=== PATIENT | female | born 1945 | race Caucasian/White ===

== ENCOUNTER → 2019-05-28 15:18 | Outpatient (BNVA) | payer MEDICARE, BC, SELFPAY | PROVIDERS: Family Provider Family Medicine; PCP Family Medicine; Visit Provider Internal Medicine Rheumatology | DX: M10.9 Gout, unspecified (principal); M32.9 Systemic lupus erythematosus, unspecified | CPT/HCPCS: 80053; 84550; 85025 ==

== ENCOUNTER → 2019-05-31 12:49 | Outpatient (BNVA) | payer MEDICARE, BC, SELFPAY | PROVIDERS: Family Provider Family Medicine; PCP Family Medicine; Visit Provider Family Medicine | DX: E11.9 Type 2 diabetes mellitus without complications (principal); Z79.4 Long term (current) use of insulin | CPT/HCPCS: 80061; 83036 ==

== ENCOUNTER → 2019-07-02 15:20 | Outpatient (BNVA) | payer MEDICARE, BC, SELFPAY | PROVIDERS: Family Provider Family Medicine; PCP Family Medicine; Visit Provider Internal Medicine Rheumatology | DX: M10.9 Gout, unspecified (principal); E11.9 Type 2 diabetes mellitus without complications; Z79.4 Long term (current) use of insulin; M32.9 Systemic lupus erythematosus, unspecified | CPT/HCPCS: 80053; 84550; 85025 ==

== ENCOUNTER → 2019-09-26 11:34 | Outpatient (BNVA) | payer MEDICARE, BC, SELFPAY | PROVIDERS: Family Provider Family Medicine; PCP Family Medicine; Visit Provider Internal Medicine | DX: N18.3 Chronic kidney disease, stage 3 (moderate) (principal) | CPT/HCPCS: 80069; 82044; 82310; 83970; 85025 ==

== ENCOUNTER → 2019-10-03 15:06 | Outpatient (BNVA) | payer MEDICARE, BC, SELFPAY | PROVIDERS: Family Provider Family Medicine; PCP Family Medicine; Visit Provider Internal Medicine Rheumatology | DX: L40.50 Arthropathic psoriasis, unspecified (principal); E11.22 Type 2 diabetes mellitus with diabetic chronic kidney disease; I12.9 Hypertensive chronic kidney disease with stage 1 through stage 4 chronic kidney disease, or unspecified chronic kidney disease; N18.3 Chronic kidney disease, stage 3 (moderate); M17.0 Bilateral primary osteoarthritis of knee; Z79.4 Long term (current) use of insulin; Z87.891 Personal history of nicotine dependence; Z79.899 Other long term (current) drug therapy | CPT/HCPCS: 99214 ==

== ENCOUNTER → 2019-10-05 10:01 | Outpatient (BNVA) | payer MEDICARE, BC, SELFPAY | PROVIDERS: Family Provider Family Medicine; PCP Family Medicine; Visit Provider Internal Medicine Rheumatology | DX: L40.50 Arthropathic psoriasis, unspecified (principal); M06.9 Rheumatoid arthritis, unspecified; Z79.899 Other long term (current) drug therapy | CPT/HCPCS: 80076; 86431 ==

== ENCOUNTER 2019-10-09 10:16 | Outpatient (CLI) | payer MEDICARE, BC, SELFPAY ==
--- NOTE | 2019-10-09 09:30 | XR_ITS ---
WS: [id number] LEFT HAND: 3 VIEW(S) TECHNIQUE: PA, oblique and lateral. HISTORY: rheumatoid arthritis COMPARISON: 03/15/2013 No acute fracture or dislocation. Marked interphalangeal joint space narrowing. Mild seagull deformity along the joint spaces. No perio stitis. No erosions. XR/XR hand LT min 3V* [id number] IMPRESSION: Severe interphalangeal joint space narrowing. Consider erosive arthritis
--- NOTE | 2019-10-09 09:45 | XR_ITS ---
WS: [id number] RIGHT HAND: 3 VIEW(S) TECHNIQUE: PA, oblique and lateral. HISTORY: rheumatoid arthritis COMPARISON: 03/15/2013 No acute fracture or dislocation. Severe narrowing of the interphalangeal joint space. Most significant involving the third DIP joint. No erosions or subluxation. Ulnar styloid is intact. XR/XR hand RT min 3V* [id number] IMPRESSION: Osteopenia. Consider erosive osteoarthritis.
--- NOTE | 2019-10-09 10:00 | XR_ITS ---
WS: [id number] LEFT FOOT: 3 VIEW(S) TECHNIQUE: AP, oblique and lateral. HISTORY: rheumatoid arthritis COMPARISON: None available. No acute fracture or dislocation. Normal tarsal/metatarsal alignment. Mild interphalangeal joint space narrowing. Small calcaneal spur. Enthesopathy at the Achilles tendon . XR/XR foot LT min 3V* [id number] IMPRESSION: Mild osteoarthritis. No erosions.
--- NOTE | 2019-10-09 10:15 | XR_ITS ---
WS: [id number] RIGHT FOOT: 3 VIEW(S) TECHNIQUE: AP, oblique and lateral. HISTORY: rheumatoid arthritis COMPARISON: None available. No acute fracture or dislocation. Normal tarsal/metatarsal alignment. No erosions. No subluxation. Small calcaneal spur and enthesopath y Achilles tendon. No soft tissue abnormality or bone destruction. XR/XR foot RT min 3V* [id number] IMPRESSION: Small calcaneal spur. No erosions.
== END 2019-10-09 10:17 | disposition home or self-care (01) ==
LOC: RADWPI 10:22
PROVIDERS: Family Provider Family Medicine; PCP Family Medicine; Visit Provider Internal Medicine Rheumatology
DX: M06.9 Rheumatoid arthritis, unspecified (principal); M77.31 Calcaneal spur, right foot; M77.32 Calcaneal spur, left foot; M85.841 Other specified disorders of bone density and structure, right hand; M19.072 Primary osteoarthritis, left ankle and foot
CPT/HCPCS: 73130; 73630

== ENCOUNTER → 2019-10-18 10:30 | Outpatient (BNVA) | payer MEDICARE, BC, SELFPAY | PROVIDERS: Family Provider Family Medicine; PCP Family Medicine; Visit Provider Family Medicine | DX: E11.69 Type 2 diabetes mellitus with other specified complication (principal); Z79.4 Long term (current) use of insulin; I10 Essential (primary) hypertension; K21.9 Gastro-esophageal reflux disease without esophagitis; E78.5 Hyperlipidemia, unspecified | CPT/HCPCS: 80061; 83036 ==

== ENCOUNTER → 2019-11-21 13:16 | Outpatient (BNVA) | payer MEDICARE, BC, SELFPAY | PROVIDERS: Family Provider Family Medicine; PCP Family Medicine; Visit Provider Nurse Practitioner Family | DX: R60.9 Edema, unspecified (principal); E11.65 Type 2 diabetes mellitus with hyperglycemia | CPT/HCPCS: 80053; 85025 ==

== ENCOUNTER → 2020-01-01 08:54 | Outpatient (BNVA) | payer MEDICARE, BC, SELFPAY | PROVIDERS: Family Provider Family Medicine; PCP Family Medicine; Visit Provider Internal Medicine Rheumatology | DX: L40.50 Arthropathic psoriasis, unspecified (principal); Z79.899 Other long term (current) drug therapy; M15.9 Polyosteoarthritis, unspecified; E11.22 Type 2 diabetes mellitus with diabetic chronic kidney disease; I12.9 Hypertensive chronic kidney disease with stage 1 through stage 4 chronic kidney disease, or unspecified chronic kidney disease; N18.3 Chronic kidney disease, stage 3 (moderate); Z87.891 Personal history of nicotine dependence; Z79.4 Long term (current) use of insulin | CPT/HCPCS: 99214 ==

== ENCOUNTER → 2020-03-25 09:03 | Outpatient (BNVA) | payer MEDICARE, BC, SELFPAY | PROVIDERS: Family Provider Family Medicine; PCP Family Medicine; Visit Provider Internal Medicine Nephrology | DX: N18.30 Chronic kidney disease, stage 3 unspecified (principal); Z79.899 Other long term (current) drug therapy | CPT/HCPCS: 80069; 80076; 82043; 82306; 82310; 82565; 83970; 85025; 85651; 86140 ==

== ENCOUNTER → 2020-04-07 10:48 | Outpatient (BNVA) | payer MEDICARE, BC, SELFPAY | PROVIDERS: Family Provider Family Medicine; PCP Family Medicine; Visit Provider Internal Medicine Rheumatology | DX: L40.50 Arthropathic psoriasis, unspecified (principal); L40.0 Psoriasis vulgaris; M17.0 Bilateral primary osteoarthritis of knee; E55.9 Vitamin D deficiency, unspecified; E11.22 Type 2 diabetes mellitus with diabetic chronic kidney disease; I12.9 Hypertensive chronic kidney disease with stage 1 through stage 4 chronic kidney disease, or unspecified chronic kidney disease; N18.30 Chronic kidney disease, stage 3 unspecified; Z79.899 Other long term (current) drug therapy; Z79.4 Long term (current) use of insulin | CPT/HCPCS: 99214 ==

== ENCOUNTER → 2020-04-17 09:44 | Outpatient (BNVA) | payer MEDICARE, BC, SELFPAY | PROVIDERS: Family Provider Family Medicine; PCP Family Medicine; Visit Provider Family Medicine | DX: I12.9 Hypertensive chronic kidney disease with stage 1 through stage 4 chronic kidney disease, or unspecified chronic kidney disease; N18.30 Chronic kidney disease, stage 3 unspecified; E11.65 Type 2 diabetes mellitus with hyperglycemia | CPT/HCPCS: 80053; 80061; 82306; 83036; 84443; 84550; 85025 ==

== ENCOUNTER 2020-04-25 10:51 | Emergency (ER) | payer MEDICARE, BC, SELFPAY ==
[2020-04-25 11:18] VITALS: BP 117/80; PULSE 80; RESP 16; TEMP 36.6; O2SAT 97; BMI 42.3
[2020-04-25 11:35] VITALS: BP 178/95; PULSE 77; RESP 14; O2SAT 97
--- NOTE | 2020-04-25 12:08 | US_ITS ---
WS: [id number] RIGHT UPPER QUADRANT ULTRASOUND HISTORY: RUQ pain, elevated liver enzymes COMPARISON: None available. Liver: 12.9 cm in length. Normal size liver. Mild dilatation of the central bile ducts. Gallbladder: Gallbladder is well distended. Transverse diameter is 6.3 mm. No wall thickening or jim cholecystic fluid. No stones are identified. There is a moderate amount of sludge in the lumen. CBD: 1.3 cm, dilated common bile duct. There are filling defects within the CBD which may be sludge. No shadowing. Pancreas: Normal size and echogenicity. Right kidney: 11.3 cm in length. Normal size and echogenicity. No hydronephrosis or mass. Aorta and IVC: Unremarkable abdominal aorta and IVC. No ascites. US/US gall bladder [id number] IMPRESSION: 1. Hydropic gallbladder with sludge. No pericholecystic fluid. 2. Common bile duct and intrahepatic ducts are dilated. Suspicious for sludge within the common bile duct. MRCP and/or ERCP will be necessary for further jennifer luation.
--- NOTE | 2020-04-25 12:08 | CT_ITS ---
WS: [id number] CT ABDOMEN AND PELVIS WITH CONTRAST HISTORY: abdominal pain and distension TECHNIQUE: Imaging performed of the abdomen and pelvis with IV contrast. Single phase imaging of the abdomen. Coronal and sagittal reformats are submitted. All CT scans at [facility] use at least one of these dose optimization techniques: automated exposure control; mA and/or kV adjustment per patient size (includes targeted exams where dose is matched to clinical indication); or iterativ e reconstruction. IV CONTRAST: Visipaque 320; 95 mL IV. Oral contrast: No DLP: 1664.04 mGy.cm COMPARISON: 09/10/2008 Lower thorax: Lung bases are clear. Mild enlargement the heart. Calcification or mitral replacement. Small hiatal hernia. Liver/biliary system: Normal size liver. There is marked intrahepatic dilatation. Common bile duct is dilated as seen on the recent ultrasound measuring 15 mm in diameter. Common bile duct tapers rapidl y through the pancreatic head. I cannot identify a stone along the course of the common bile duct. Gallbladder: Markedly distended gallbladder with no wall thickening. No pericholecystic fluid or navin a. Gallbladder measures 9 cm in diameter. Pancreas: Marked dilatation of the pancreatic duct. There is diffuse enlargement of the pancreatic du ct. Duct measures up to 14 mm. No definite pancreatic head mass although there is some fullness near the ampulla of Vater. Spleen: Splenic granulomata. Adrenal glands: RIGHT adrenal gland is normal. There is a large mass identified by 3.5 cm and was pre sent also 2008 but increased slightly in size. Right kidney: Normal size kidney with mild perinephric stranding. Vascular calcifications. No hydrone phrosis. Left kidney: Normal size with mild perinephric stranding. No obstruction. Aorta: Extensive calcification throughout the aorta and extending into the proximal RIGHT renal arter y and through the common iliac arteries. Lymphadenopathy: None. Free fluid: None. GI tract: Fecal retention throughout the colon. Extensive diverticular disease throughout the colon. No acute inflammation. No obstruction. The appendix is normal. Abdominal wall: Small umbilical hernia contains fat only. Pelvis: Prior hysterectomy. Bones: Degenerative disc disease at L4-5. CT/CT abdomen pelvis w con* [id number] IMPRESSION: 1. Marked intrahepatic and extrahepatic duct dilatation and pancreatic duct di latation. 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 ERCP with possible stent placement m ay be necessary. 2. Hydropic gallbladder. 3. LEFT adrenal mass has been present over multiple years but slightly increas ed in size and is heterogeneous. Due to long-term presence this is probably young ign. 4. Extensive diverticulosis without acute diverticulitis. 5. Extensive atherosclerosis aorta and common iliac arteries. Notified Indio Marks MD [facility] [place] 04/25/2020 2:03 PM.
--- NOTE | 2020-04-25 12:12 | ED_ITS ---
HPI - Abdominal Pain General: Chief Complaint: Abdominal Pain Stated Complaint: abd pain, jaundiced, abnormal labs Time Seen by Provider: 04/25/20 11:44 Source: patient Mode of arrival: ambulatory Limitations: no limitations History of Present Illness: HPI narrative: The patient is a 74-year-old female with a history of diabetes, psoriatic arthritis, hypertension who presents to the emergency department with abdominal pain and a feeling of fullness. Symptoms have been ongoing for about a month and 5 days ago she got tested at her primary care provider's office and her liver enzymes were elevated. Today she was noted to be jaundiced and so sent here for evaluation. The patient also complains of generalized itching. No fever, no vomiting but she has some nausea. She has diarrhea from her medications. MD elicited complaint: abdominal pain Onset (ago): month(s) (1) Location: Other (upper abdomen) Severity: moderate Quality: aching Radiation: none Migration to: no migration Exacerbating factors: nothing Relieving factors: nothing Associated Symptoms: Reports bloating and nausea; Denies anorexia, belching, change in bowel habits, change in stool character, chills, coffee ground emesis, constipation, GI cramping, diarrhea, dyspepsia, dysuria, excessive flatus, fever(s), heartburn, hematochezia, hematuria, hematemesis, fecal incontinence, loose stools, melena, poor appetite, syncope and vomiting Review of Systems General: Reports: 10 or more systems reviewed and unremarkable except in HPI and below Const: Denies: fever(s) or chills Eyes: Denies: change in vision or blurry vision ENMT: Denies: throat pain, enlarged tonsils, odynophagia, hoarseness, mouth pain or swelling of lips/tongue Card: Denies: syncope Resp: Denies: dyspnea, productive cough or non-productive cough GI: Reports: nausea and bloating; Denies: vomiting, hematemesis, coffee ground emesis, heartburn, diarrhea, constipation, GI cramping, belching, excessive flatus, fecal incontinence, change in bowel habits, change in stool character, hematochezia or melena : Denies: dysuria or hematuria Musc: Denies: neck pain, back pain or extremity swelling Skin/Breast: Denies: rash, pruritus or erythema Neuro: Denies: headache(s), numbness in extremities or weakness in extremities Endo: Denies: polyuria, polydipsia or tired all the time PFSH ED PFSH: Medical History Adrenal cyst Bilateral hearing loss Chronic fatigue Chronic GERD Chronic kidney disease, stage 3 (moderate) Depression Diabetes mellitus Dyslipidemia declines statin. Was on Lipitor in the past, did not tolerate Encounter for counseling for care management of patient with chronic conditions and complex health needs using nurse-based model Enrolled in chronic care management Essential (primary) hypertension High risk medication use Idiopathic thrombocytopenia Immunization counseling Immunosuppression Localized osteoarthritis of both knees Neuropathy Obesity, unspecified BMI 30.0-34.9 Obstructive sleep apnea Osteoarthritis, generalized PAD (peripheral artery disease) Plaque psoriasis Psoriatic arthritis Retention of urine Statin intolerance Tremor, unspecified Type 2 diabetes mellitus, uncontrolled Vitamin D deficiency Surgical History History of bone marrow biopsy (~1991) History of lumbar laminectomy Hx of arthroscopy of right knee (~2009) Hx of bilateral cataract extraction (~2017) Hx of fusion of cervical spine Hx of hemorrhoidectomy (~1981) Hx of total hysterectomy (~1992) Hx of tubal ligation Family History Family/Other Diabetes Cancer colon, biliary, melanoma Father , age 71 Diabetes CAD (coronary artery disease) Mother , age 85 Hypertension Diabetes CAD (coronary artery disease) CHF Social History Smoking and tobacco status: former smoker Quit status (tobacco): has quit using tobacco Year quit tobacco: 07/2010 Alcohol intake: never Lives independently: Yes Household members: none Housing: House Marital status: Current occupational status: retired Current occupational exposures/hazards: No Previous occupational history: education History of recent travel: No Current gender identity: Female Physical Exam Const: COMMON NORMALS: no acute distress, average body habitus, patient oriented x3, no limitations, healthy appearing, alert and well nourished HENMT: COMMON NORMALS: normocephalic, atraumatic and moist oral mucous membranes HEAD & SCALP: normocephalic and atraumatic Neck/C-Spine: COMMON NORMALS: no meningeal signs and no JVD Resp: COMMON NORMALS: normal respiratory effort, No retractions, No use of accessory muscles, clear to auscultation bilaterally and percussion normal AUSCULTATION: clear to auscultation bilaterally PERCUSSION: percussion normal Cardio: COMMON NORMALS: no JVD, regular rate, regular rhythm, S1 normal heart sound present, S2 normal heart sound present, No gallops present (Cardio), No clicks present (Cardio), No murmurs present (Cardio), No rub (Cardio) and Periph eral pulses 2+ throughout RATE: regular rate RHYTHM: regular rhythm HEART SOUNDS: S1 normal heart sound present and S2 normal heart sound present PERIPHERAL PULSES: Peripheral pulses 2+ throughout GI: COMMON NORMALS: Normal to inspection, nondistended, normoactive bowel sounds present, Soft to palpation, non-tender, No hepatosplenomegaly present, no masses and no bruits PALPATION: Yes Soft to palpation and Yes No hepatosplenomegaly present Extremity: COMMON NORMALS: normal to inspection, full ROM, capillary refill normal, no calf tenderness and no pedal edema Neuro: COMMON NORMALS: patient oriented x3 SENSORIUM/ORIENTATION: Yes alert MENINGEAL SIGNS: Yes no meningeal signs Skin: COMMON NORMALS: no rashes or lesions noted, no wounds, turgor normal, no jaundice, no petechiae and no mottling GENERAL SKIN EXAM: no rashes or lesions noted and turgor normal Course Reevaluation(s): Reevaluation #1: Discussed her lab and imaging findings with her. Explained that her bilirubin is significantly elevated and she also has a mild elevation of transaminases. She will need an ERCP because of her dilated common bile duct. I explained to her that I am concerned about malignancy since these symptoms mainly painless. She voiced understanding and would want to be transferred to [facility] if they can do it there otherwise [place] as her son lives there. She has no family in [place] and would rather not be transferred there. Will call and update the patient as needed. Time: 14:14 Consultations: Consultation #1: Discussed the patient with Dr. Durand, surgeon at this facility and he advised that the patient needs an ERCP and will be best s erved by transferring out of this facility Time: 13:36 Consultation #2: Discussed the patient with Dr. Ding, hospitalist at [facility] in [place] and she kindly accepted patient to her service. She will check and confirm that they have gastroenterology that can do ERCP prior to accepting the patient. Time: 14:28 Vital Signs: Vital signs: Vital Signs Temperature 97.9 F 04/25/20 11:18 Pulse Rate 87 04/25/20 18:46 Respiratory Rate 17 04/25/20 18:46 Blood Pressure 186/54 04/25/20 18:46 Pulse Oximetry 97 04/25/20 18:46 MDM - Abdominal Pain MDM Narrative: Medical decision making narrative: 74-year-old female patient who has had at least a month of abdominal bloating and feeling of fullness. She has only mild abdominal pain. She saw her primary care provider earlier this week and on blood work was noted to have elevated liver enzymes. Today she was noted to be jaundiced and so was sent here for evaluation. On evaluation here she has markedly elevated bilirubin and mildly elevated liver enzymes. Ultrasound of her gallbladder and a CT scan of her abdomen and pelvis showed significantly dilated common bile duct and my concern is that because she is largely painless she may have a malignant process going on. She is being tra nsferred for an ERCP and further management and evaluation. Her preference is to be transferred to [facility] or a hospital in [place] as she has family there Medical Records: Attestation: I reviewed the patient's medical records. Lab Data: Attestation: I reviewed the patient's lab results. Labs: Lab Results 04/25/20 04/25/20 04/25/20 Range/Units 12:33 12:33 12:33 WBC 6.0 (4.0-10.0) 10^3/ uL RBC 3.64 L (4.1-5.3) 10^6/u L Hgb 10.6 L (11.5-15.3) g/dL Hct 32.4 L (37.0-47.0) % MCV 89.0 (81-99) fL MCH 29.1 (28.0-34.0) pg MCHC 32.7 (30.0-36.0) g/dL RDW 15.6 H (12.1-15.1) % Plt Count 208 (130-400) 10^3/c mm MPV 10.3 (7.4-10.4) fL Neut % (Auto) 65.1 % Lymph % (Auto) 20.3 % Platte % (Auto) 8.8 % Eos % (Auto) 4.7 % Baso % (Auto) 0.3 % Neut # (Auto) 3.91 (1.8-7.7) 10^3/u L Lymph # (Auto) 1.2 (0.8-4.8) 10^3/u L Platte # (Auto) 0.5 (0.2-0.9) 10^3/u L Eos # (Auto) 0.3 (0.0-0.8) 10^3/u L Baso # (Auto) 0.0 (0.0-0.1) 10^3/u L Nucleated RBC % (a uto) 0 % Nucleated RBCs # 0.0 /100WBC PT 13.10 (12.1-14.9) SECO NDS INR 0.97 (0.8-1.2) Sodium (136-145) mmol/L Potassium (3.5-5.1) mmol/L Chloride (98-107) mmol/L Carbon Dioxide (22-29) mmol/L Anion Gap (5-19) BUN (8-23) mg/dL Creatinine (0.5-0.9) mg/dL GFR Calculation Glucose (65-115) mg/dL Calculated Osmolal ity (285-295) mOsm/k g Lactate (0.5-2.2) mmol/L Calcium (8.5-10.5) mg/dL Total Bilirubin (0.15-1.2) mg/dL AST (0-32) U/L ALT (0-33) U/L Alkaline Phosphata se (35-105) IU/L C-Reactive Protein (0.0-4.9) mg/L Total Protein (6.6-8.7) g/dL Albumin (3.5-5.2) g/dL Globulin (1.3-4.6) g/dL Lipase (13-60) U/L TSH (0.27-4.20) uIU/ mL Urine Color (Yellow) Urine Appearance (CLEAR) Urine pH (5-7) Ur Specific Gravit y (1.005-1.030) Urine Protein (Negative) Urine Glucose (UA) (Normal) Urine Ketones (Negative) Urine Blood (Negative) Urine Nitrate (Negative) Urine Bilirubin (Negative) Urine Urobilinogen (Negative) mg/dL Ur Leukocyte Aurelia ase (Negative) Urine RBC (0-2) /hpf Urine WBC (0-5) /hpf Ur Squamous Epith Cells (0-5) /hpf Amorphous Sediment Urine Bacteria (NONE) /hpf Hepatitis A IgM Ab Non-reactive (Nonreactive) Hep Bs Antigen Non-reactive (Nonreactive) Hep B Core IgM Ab Non-reactive (Nonreactive) Hepatitis C Antibo dy Non-reactive (Nonreactive) SARS-CoV-2 Ag (Rap id) (Negative) 04/25/20 04/25/20 04/25/20 Range/Units 12:33 12:33 13:20 WBC (4.0-10.0) 10^3/ uL RBC (4.1-5.3) 10^6/u L Hgb (11.5-15.3) g/dL Hct (37.0-47.0) % MCV (81-99) fL MCH (28.0-34.0) pg MCHC (30.0-36.0) g/dL RDW (12.1-15.1) % Plt Count (130-400) 10^3/c mm MPV (7.4-10.4) fL Neut % (Auto) % Lymph % (Auto) % Platte % (Auto) % Eos % (Auto) % Baso % (Auto) % Neut # (Auto) (1.8-7.7) 10^3/u L Lymph # (Auto) (0.8-4.8) 10^3/u L Platte # (Auto) (0.2-0.9) 10^3/u L Eos # (Auto) (0.0-0.8) 10^3/u L Baso # (Auto) (0.0-0.1) 10^3/u L Nucleated RBC % (a uto) % Nucleated RBCs # /100WBC PT (12.1-14.9) SECO NDS INR (0.8-1.2) Sodium 134 L (136-145) mmol/L Potassium 3.5 (3.5-5.1) mmol/L Chloride 101 (98-107) mmol/L Carbon Dioxide 23 (22-29) mmol/L Anion Gap 13.5 (5-19) BUN 44 H (8-23) mg/dL Creatinine 1.5 H (0.5-0.9) mg/dL GFR Calculation Not Reportable Glucose 139 H (65-115) mg/dL Calculated Osmolal ity 291 (285-295) mOsm/k g Lactate 0.9 (0.5-2.2) mmol/L Calcium 9.4 (8.5-10.5) mg/dL Total Bilirubin 5.2 H (0.15-1.2) mg/dL AST 75 H (0-32) U/L ALT 209 H (0-33) U/L Alkaline Phosphata se 424 H (35-105) IU/L C-Reactive Protein 13.4 H (0.0-4.9) mg/L Total Protein 5.9 L (6.6-8.7) g/dL Albumin 3.1 L (3.5-5.2) g/dL Globulin 2.8 (1.3-4.6) g/dL Lipase 130 H (13-60) U/L TSH 0.72 (0.27-4.20) uIU/ mL Urine Color Dark yellow (Yellow) Urine Appearance Clear (CLEAR) Urine pH 5.0 (5-7) Ur Specific Gravit y 1.010 (1.005-1.030) Urine Protein 2+ H (Negative) Urine Glucose (UA) Norm (Normal) Urine Ketones Negative (Negative) Urine Blood Neg (Negative) Urine Nitrate Negative (Negative) Urine Bilirubin 1+ H (Negative) Urine Urobilinogen 1 H (Negative) mg/dL Ur Leukocyte Aurelia ase 1+ H (Negative) Urine RBC 0-4 H (0-2) /hpf Urine WBC 0-4 H (0-5) /hpf Ur Squamous Epith Cells 0-4 H (0-5) /hpf Amorphous Sediment Not Reportable Urine Bacteria Trace (NONE) /hpf Hepatitis A IgM Ab (Nonreactive) Hep Bs Antigen (Nonreactive) Hep B Core IgM Ab (Nonreactive) Hepatitis C Antibo dy (Nonreactive) SARS-CoV-2 Ag (Rap id) (Negative) 04/25/20 Range/Units 17:52 WBC (4.0-10.0) 10^3/ uL RBC (4.1-5.3) 10^6/u L Hgb (11.5-15.3) g/dL Hct (37.0-47.0) % MCV (81-99) fL MCH (28.0-34.0) pg MCHC (30.0-36.0) g/dL RDW (12.1-15.1) % Plt Count (130-400) 10^3/c mm MPV (7.4-10.4) fL Neut % (Auto) % Lymph % (Auto) % Platte % (Auto) % Eos % (Auto) % Baso % (Auto) % Neut # (Auto) (1.8-7.7) 10^3/u L Lymph # (Auto) (0.8-4.8) 10^3/u L Platte # (Auto) (0.2-0.9) 10^3/u L Eos # (Auto) (0.0-0.8) 10^3/u L Baso # (Auto) (0.0-0.1) 10^3/u L Nucleated RBC % (a uto) % Nucleated RBCs # /100WBC PT (12.1-14.9) SECO NDS INR (0.8-1.2) Sodium (136-145) mmol/L Potassium (3.5-5.1) mmol/L Chloride (98-107) mmol/L Carbon Dioxide (22-29) mmol/L Anion Gap (5-19) BUN (8-23) mg/dL Creatinine (0.5-0.9) mg/dL GFR Calculation Glucose (65-115) mg/dL Calculated Osmolal ity (285-295) mOsm/k g Lactate (0.5-2.2) mmol/L Calcium (8.5-10.5) mg/dL Total Bilirubin (0.15-1.2) mg/dL AST (0-32) U/L ALT (0-33) U/L Alkaline Phosphata se (35-105) IU/L C-Reactive Protein (0.0-4.9) mg/L Total Protein (6.6-8.7) g/dL Albumin (3.5-5.2) g/dL Globulin (1.3-4.6) g/dL Lipase (13-60) U/L TSH (0.27-4.20) uIU/ mL Urine Color (Yellow) Urine Appearance (CLEAR) Urine pH (5-7) Ur Specific Gravit y (1.005-1.030) Urine Protein (Negative) Urine Glucose (UA) (Normal) Urine Ketones (Negative) Urine Blood (Negative) Urine Nitrate (Negative) Urine Bilirubin (Negative) Urine Urobilinogen (Negative) mg/dL Ur Leukocyte Aurelia ase (Negative) Urine RBC (0-2) /hpf Urine WBC (0-5) /hpf Ur Squamous Epith Cells (0-5) /hpf Amorphous Sediment Urine Bacteria (NONE) /hpf Hepatitis A IgM Ab (Nonreactive) Hep Bs Antigen (Nonreactive) Hep B Core IgM Ab (Nonreactive) Hepatitis C Antibo dy (Nonreactive) SARS-CoV-2 Ag (Rap id) Negative (Negative) Imaging Data ^: CT Abd/Pel: Radiologist's impression: [place] [address] CT Scan Report Signed Patient: Jayleen Bush #: [id number] : 1946Acc#:[id number] Age/Sex: 74 / FADM Date: 04/25/20 Loc: ERRoom/Bed: Attending Dr: Ordering Provider/Ordering MD: Indio Marks MD, [facility] Date of Service: 04/25/20 Procedure(s): CT abdomen pelvis w con* [id number] Accession Number(s): [id number] Report Number: [id number] WS: [id number] CT ABDOMEN AND PELVIS WITH CONTRAST HISTORY: abdominal pain and distension TECHNIQUE: Imaging performed of the abdomen and pelvis with IV contrast. Single phase imaging of the abdomen. Coronal and sagittal reformats are submitted. All CT scans at [facility] use at least one of these dose optimization techniques: automated exposure control; mA and/or kV adjustment per patient size (includes targeted exams where dose is matched to clinical indication); or iterative reconstruction. IV CONTRAST: Visipaque 320; 95 mL IV. Oral contrast: No DLP: 1664.04 mGy.cm COMPARISON: 09/10/2008 Lower thorax: Lung bases are clear. Mild enlargement the heart. Calcification or mitral replacement. Small hiatal hernia. Liver/biliary system: Normal size liver. There is marked intrahepatic dilatation. Common bile duct is dilated as seen on the recent ultrasound measuring 15 mm in diameter. Common bile duct tapers rapidly through the pancreatic head. I cannot identify a stone along the course of the common bile duct. Gallbladder: Markedly distended gallbladder with no wall thickening. No pericholecystic fluid or edema. Gallbladder measures 9 cm in diameter. Pancreas: Marked dilatation of the pancreatic duct. There is diffuse enlargement of the pancreatic duct. Duct measures up to 14 mm. No definite pancreatic head mass although there is some fullness near the ampulla of Vater. Spleen: Splenic granulomata. Adrenal glands: RIGHT adrenal gland is normal. There is a large mass identified by 3.5 cm and was present also 2008 but increased slightly in size. Right kidney: Normal size kidney with mild perinephric stranding. Vascular calcifications. No hydronephrosis. Left kidney: Normal size with mild perinephric stranding. No obstruction. Aorta: Extensive calcification throughout the aorta and extending into the proximal RIGHT renal artery and through the common iliac arteries. Lymphadenopathy: None. Free fluid: None. GI tract: Fecal retention throughout the colon. Extensive diverticular disease throughout the colon. No acute inflammation. No obstruction. The appendix is normal. Abdominal wall: Small umbilical hernia contains fat only. Pelvis: Prior hysterectomy. Bones: Degenerative disc disease at L4-5. CT/CT abdomen pelvis w con* [id number] IMPRESSION: 1. Marked intrahepatic and extrahepatic duct dilatation and pancreatic duct dilatation. Although no stone is identified a distally obstructing stone, postinflammatory stricture or neoplasm is likely. ERCP with possible stent placement may be necessary. 2. Hydropic gallbladder. 3. LEFT adrenal mass has been present over multiple years but slightly increased in size and is heterogeneous. Due to long-term presence this is probably benign. 4. Extensive diverticulosis without acute diverticulitis. 5. Extensive atherosclerosis aorta and common iliac arteries. Notified Indio Marks MD [facility] at 04/25/2020 2:03 PM. Dictated By:Yvette Blanc DO Signed By:Yvette Blanc DOSigned Date/Time:04/25/20 1406 DD/ 1353 US: Radiologist's impression: [address] [place] [address] Ultrasound Report Signed Patient: Jayleen Bush #: [id number] : 7Acc#:[id number] Age/Sex: 74 / FADM Date: 04/25/20 Loc: ERRoom/Bed: Attending Dr: Ordering Provider/Ordering MD: Indio Marks MD, [facility] Date of Service: 04/25/20 Procedure(s): US gall bladder 24183 Accession Number(s): [id number] Report Number: [id number] WS: [id number] RIGHT UPPER QUADRANT ULTRASOUND HISTORY: RUQ pain, elevated liver enzymes COMPARISON: None available. Liver: 12.9 cm in length. Normal size liver. Mild dilatation of the central bile ducts. Gallbladder: Gallbladder is well distended. Transverse diameter is 6.3 mm. No wall thickening or pericholecystic fluid. No stones are identified. There is a moderate amount of sludge in the lumen. CBD: 1.3 cm, dilated common bile duct. There are filling defects within the CBD which may be sludge. No shadowing. Pancreas: Normal size and echogenicity. Right kidney: 11.3 cm in length. Normal size and echogenicity. No hydronephrosis or mass. Aorta and IVC: Unremarkable abdominal aorta and IVC. No ascites. US/US gall bladder [id number] IMPRESSION: 1. Hydropic gallbladder with sludge. No pericholecystic fluid. 2. Common bile duct and intrahepatic ducts are dilated. Suspicious for sludge within the common bile duct. MRCP and/or ERCP will be necessary for further evaluation. Dictated By:Yvette Blanc DO Signed By:Yvette Blanc DOSigned Date/Time:04/25/20 1301 DD/ 1254 Discharge Plan Discharge Patient Disposition: Xfer Short-Term Hosp Clinical Impression: Hyperbilirubinemia, Common bile duct dilatation Acute pancreatitis Qualifiers: Pancreatitis type: unspecified pancreatitis type Acute pancreatitis complication: unspecified Qualified Code(s): K85.90 - Acute pancreatitis without necrosis or infection, unspecified Condition: Stable Discharge Orders: Transfer Out of Facility (Order); Ordered 04/25/20 Ordered By: Indio Marks Referrals: Kaykay Reeves MD [Primary Care Provider] - Coding Level of Care Code ED Research Hydraulic Engineer for Chg Fwd Exam Comprehensive
[2020-04-25 12:39] VITALS: BP 177/92; O2SAT 100
[2020-04-25 12:44] LABS: Basophils % 0.3 %; Eosinophils # 0.3 10^3/uL (0.0-0.8); Eosinophils % 4.7 %; Hematocrit 32.4 % (37.0-47.0); Hemoglobin 10.6 g/dL (11.5-15.3); Lymphocytes # 1.2 10^3/uL (0.8-4.8); Lymphocytes % 20.3 %; Mean Corpuscular HGB Conc 32.7 g/dL (30.0-36.0); Mean Corpuscular Hemoglobin 29.1 pg (28.0-34.0); Mean Platelet Volume 10.3 fL (7.4-10.4); Monocytes # 0.5 10^3/uL (0.2-0.9); Monocytes % 8.8 %; Neutrophils # 3.91 10^3/uL (1.8-7.7); Neutrophils % 65.1 %; Nucleated Red Blood Cells % 0 %; Platelet Count 208 10^3/cmm (130-400); Red Blood Count 3.64 10^6/uL (4.1-5.3); Red Cell Distribution Width 15.6 % (12.1-15.1)
[2020-04-25 13:00] LABS: INR 0.97 (0.8-1.2)
[2020-04-25 13:04] LABS: Lactate (Lactic Acid level) 0.9 mmol/L (0.5-2.2)
[2020-04-25 13:13] LABS: Alanine Aminotransferase 209 U/L (0-33); Albumin Level 3.1 g/dL (3.5-5.2); Alkaline Phosphatase 424 IU/L (35-105); Anion Gap 13.5 (5-19); Aspartate Amino Transferase 75 U/L (0-32); Blood Urea Nitrogen 44 mg/dL (8-23); C Reactive Protein 13.4 mg/L (0.0-4.9); Calcium 9.4 mg/dL (8.5-10.5); Carbon Dioxide 23 mmol/L (22-29); Chloride 101 mmol/L (98-107); Globulin 2.8 g/dL (1.3-4.6); Glucose 139 mg/dL (65-115); Lipase 130 U/L (13-60); Osmolality Calculated 291 mOsm/kg (285-295); Potassium 3.5 mmol/L (3.5-5.1); Sodium 134 mmol/L (136-145); Thyroid Stimulating Hormone 0.72 uIU/mL (0.27-4.20); Total Bilirubin 5.2 mg/dL (0.15-1.2); Total Protein 5.9 g/dL (6.6-8.7)
[2020-04-25 13:17] LABS: Hepatitis A Antibody IgM Non-Reactive (Nonreactive); Hepatitis B Core IgM Non-Reactive (Nonreactive); Hepatitis B Surface Antigen Non-Reactive (Nonreactive); Hepatitis C Virus Antibody Non-Reactive (Nonreactive)
[2020-04-25 13:36] LABS: Add Urine Culture? No; Add Urine Microscopic? YES; Bacteria Urine TRACE /hpf; Bilirubin Urine 1+ (Negative); Blood Urine Neg (Negative); Glucose Urine UA Norm (Normal); Ketones Urine Negative (Negative); Leukocyte Esterase Urine 1+ (Negative); Nitrate Urine Negative (Negative); Protein Urine 2+ (Negative); RBC Urine 0-4 /hpf (0-2); Squamous Epithelial Cell Urine 0-4 /hpf (0-5); Urine Appearance Clear (CLEAR); Urine Color Dark Yellow (Yellow); Urobilinogen Urine 1 mg/dL (Negative); WBC Urine 0-4 /hpf (0-5)
[2020-04-25] MEDS: iodixanol 320 mg/mL 100mL Btl IV (13:41)
[2020-04-25 14:12] VITALS: BP 188/73; PULSE 67; RESP 15; O2SAT 96
[2020-04-25] MEDS: diphenhydrAMINE 50 mg/mL SDV 1mL IVP (14:36)
[2020-04-25 17:37] VITALS: BP 163/87; PULSE 87; RESP 17; O2SAT 97
[2020-04-25 18:32] LABS: SARS Covid-2 Antigen Negative (Negative)
[2020-04-25] MEDS: ondansetron 2 mg/ML SDV 2 mL 4 MG IVP (18:42)
[2020-04-25 18:46] VITALS: BP 186/54; PULSE 87; RESP 17; O2SAT 97
== END 2020-04-25 18:48 | disposition short-term general hospital (02) ==
PROVIDERS: Emergency Provider Family Medicine; PCP Family Medicine
DX: E80.6 Other disorders of bilirubin metabolism (principal); K83.8 Other specified diseases of biliary tract; K85.90 Acute pancreatitis without necrosis or infection, unspecified; E11.22 Type 2 diabetes mellitus with diabetic chronic kidney disease; I12.9 Hypertensive chronic kidney disease with stage 1 through stage 4 chronic kidney disease, or unspecified chronic kidney disease; N18.30 Chronic kidney disease, stage 3 unspecified; E78.5 Hyperlipidemia, unspecified; E11.40 Type 2 diabetes mellitus with diabetic neuropathy, unspecified; Z87.891 Personal history of nicotine dependence
CPT/HCPCS: 12345; 74177; 76705; 80053; 80074; 81001; 83605; 83690; 84443; 85025; 85610; 86140; 87426; 96374; 96375; 99283; 99285; J1200; J2405; Q9967

== ENCOUNTER → 2020-05-29 11:46 | Outpatient (BNVA) | payer MEDICARE, BC, SELFPAY | PROVIDERS: PCP Family Medicine; Visit Provider Family Medicine | DX: R74.8 Abnormal levels of other serum enzymes (principal) | CPT/HCPCS: 80053; 85025 ==

== ENCOUNTER 2020-06-04 07:30 | Outpatient (CLI) | payer MEDICARE, BC, SELFPAY ==
[2020-06-04 07:42] VITALS: BMI 39.1
--- NOTE | 2020-06-04 07:43 | ECG_ITS ---
[facility] Test Date: 2020-06-04 Pat Name: Jayleen Bush Department: Room: Gender: Female Crowd Controller: : 1945 Requested By: Ivon Whiteside Order Number: [id number] Eli MD: Ivon Whiteside M.D. Interpretive Statements NAME OF STUDY: LEXISCAN SESTAMIBI STRESS TEST INDICATION: Sob, PROCEDURE: At the baseline, the EKG revealed sinus rhythm with a frequent's ventricular ectopics. Poor R wave progression. Nonspecific T wave changes. The baseline blood pressure was 183/50 mm Hg with a heart rate of 70 beats/min. Lexiscan was infused over a period of 20 seconds. A total of 0.4 milligrams of Lexiscan was infused. The stress phase was continued for a total of 5 minutes. Heart rate at the end of the stress phase was 90 with a blood pressure 164/54. The EKG at the peak infusion revealed no significant changes except for the disappearance of the PVCs. Sestamibi was injected 20 seconds after the Lexiscan infusion. Blood pressure at the end of the recovery phase was 169/59 with a heart rate of 95 per minute. CONCLUSION: 1. No significant EKG changes with the LexiScan infusion 2. No LexiScan induced chest pain or cardiac arrhythmia 3. Normal blood pressure and heart rate response 4. Sestamibi/sestamibi perfusion scan pending; see separate report. Electronically Signed On 06-06-2020 12:23:17 PHYSICIAN VICE PRESIDENT by Ivon Whiteside M.D. [email or web address]
--- NOTE | 2020-06-04 07:43 | NMCV_ITS ---
NM john perf SPECT r/s* [id number] Jayleen Bush Age: 74 Gender: F : 1945 Exam Date: 06/04/2020 08:38 Ordering Phys: Ivon Whiteside MD ([email or web address]) Technologist: AMOR Lui Exam Location: [facility] Indications: SHORTNESS OF BREATH STRESS TEST Please see separate stress test report in [facility] for full findings IMAGE PROTOCOL Rest/Stress 1 Lexiscan Day Radiopharmaceutical Dose (mCi) Administration Site Administered by Rest: Tc-99m 10.6 IV AMOR Gamble Sestamibi Stress:Tc-99m 32.0 IV AMOR Gamble Sestamibi Rest: 04-Jun-2020 60 Discovery 630 Stress: 04-Jun-2020 30 Discovery 630 0.4mg Lexiscan. Supine position only as patient was unable to lay prone. SPECT RESULTS Technical Quality: Excellent Raw Data Analysis: Breast attenuation Image Corrections: No attenuation or motion correction applied Summed Stress Score: 0 Summed Rest Score: 2 Summed Difference Score: 0 PERFUSION FINDINGS Patchy areas of slightly decreased tracer uptake in the anterior wall and inferior wall regions with no significant reversibility. FUNCTIONAL RESULTS (calculated via Gated SPECT) Stress Image LV EF (%): 71 Stress EDV (mL):100 TID: 1.12 Stress ESV (mL):29 FUNCTIONAL FINDINGS: Segmental wall motion analysis revealing no gross wall motion abnormalities. IMPRESSIONS 1. Myocardial perfusion imaging revealing patchy areas of persistent decreased tracer uptake in the anterior wall and inferior wall regions, most likely represent attenuation artifacts. 2. Normal LV ejection fraction of 71%. 3. LV wall motion analysis revealing no gross wall motion abnormalities. 4. Normal LV volume. No significant coronary ischemia, based on the above findings Dr Ivon Whiteside MD [facility] (Electronically Signed) Final Date: 04 June 2020 13:11 S
[2020-06-04] MEDS: regadenoson 0.4 Mg/5 ml Syringe IVP (09:18)
[2020-06-04 09:28] VITALS: BP 169/59; PULSE 90
== END 2020-06-04 07:31 | disposition home or self-care (01) ==
LOC: CDL 07:30
PROVIDERS: PCP Family Medicine; Visit Provider Internal Medicine Cardiovascular Disease
DX: R06.02 Shortness of breath (principal)
CPT/HCPCS: 78452; 93017; A9500; J2785

== ENCOUNTER 2020-06-06 11:01 | Outpatient (CLI) | payer MEDICARE, BC, SELFPAY ==
--- NOTE | 2020-06-06 11:00 | USCV_ITS ---
Jayleen Bush Age: 74 Gender: F : 1945 Exam Date: 06/06/2020 11:05 Ordering Phys: Ivon Whiteside MD ([email or web address]) Technologist: Nicole Ochoa Exam Location: [facility] [place] Indication: chest pain BP: / HR: 79 Rhythm: Sinus Technical Quality: Adequate MEASUREMENTS (Male / Female) Normal Values 2D ECHO LV Diastolic Diameter PLAX 4.1 cm 4.2 - 5.9 / 3.9 - 5.3 cm LV Systolic Diameter PLAX 2.3 cm LV Chamber Size 3.3 cm IVS Diastolic Thickness 1.5 cm 0.6 - 1.0 / 0.6 - 0.9 cm IVS Systolic Thickness 1.6 cm LVPW Diastolic Thickness 2.3 cm 0.6 - 1.0 / 0.6 - 0.9 cm LVPW Systolic Thickness 2.5 cm RV Chamber Size 2.6 cm LVOT Diameter 2.1 cm LV Ejection Fraction 2D Teich 76.4 % LV Ejection Fraction MOD 2C 66.5 % LV Ejection Fraction 2C AL 66.4 % LA Diameter 3.5 cm LA Width 3.3 cm LA Height 4.7 cm RA Width 2.0 cm RA Height 4.8 cm Aorta at Sinotubular Diameter 2.4 cm M-MODE LV Diastolic Diameter MM 3.7 cm 4.2 - 5.9 / 3.9 - 5.3 cm LV Systolic Diameter MM 1.4 cm LV Ejection Fraction MM Teich 90.5 % IVS Diastolic Thickness MM 1.1 cm 0.6 - 1.0 / 0.6 - 0.9 cm IVS Systolic Thickness MM 1.7 cm LVPW Diastolic Thickness MM 1.2 cm 0.6 - 1.0 / 0.6 - 0.9 cm LVPW Systolic Thickness MM 2.3 cm Aortic Annulus Diameter 2.9 cm LA Ao Ratio MM 1.3 MV E Point Septal Separation 0.8 cm DOPPLER AV Peak Velocity 212.0 cm/s LVOT Peak Velocity 150.0 cm/s AV Area Cont Eq vti 2.7 cm squared AV Area Cont Eq pk 2.4 cm squared MV Area PHT 1.8 cm squared Mitral E to A Ratio 0.7 MV E' Velocity 51.0 cm/s Mitral E to MV E' Ratio 10.9 Mitral E to LV E' Lateral Ratio 10.0 Mitral E to LV E' Septal Ratio 12.1 TR Peak Velocity 218.8 cm/s TR Peak Gradient 19.1 mmHg TV Peak E Velocity 60.0 cm/s Right Atrial Pressure 3.0 mmHg Pulmonary Artery Systolic Pressu 22.1 mmHg PV Peak Velocity 119.0 cm/s RV Acceleration Time 0.2 s RV Ejection Time 0.4 s RV AcT/ET 0.5 FINDINGS Left Ventricle Normal left ventricular size and systolic function, EF 59 %. No regional wall motion abnormalities. Mild left ventricular hypertrophy. Grade I/IV diastolic dysfunction (abnormal relaxation filling pattern), normal to mildly elevated filling pressures. Right Ventricle The right ventricle is normal in size and function. Right Atrium The right atrium is normal in size. Left Atrium Mildly increased left atrial size. Mitral Valve Thickened mitral valve. Mild mitral annular calcification. Aortic Valve Aortic valve sclerosis. Peak velocity the aortic valve is 2.1 m/s Tricuspid Valve No gross abnormalities noted Pulmonic Valve Structurally normal pulmonic valve. Pericardium Normal pericardium without effusion. Aorta Normal ascending aorta dimension. CONCLUSIONS Normal left ventricular size and systolic function, EF 59 %. No regional wall motion abnormalities. Mild left ventricular hypertrophy. Grade I/IV diastolic dysfunction (abnormal relaxation filling pattern), normal to mildly elevated filling pressures. Thickened mitral valve. Mild mitral annular calcification. Mildly increased left atrial size. Aortic valve sclerosis. Peak velocity the aortic valve is 2.1 m/s. There is no pericardial effusion. There are no intracardiac masses. Compared to the previous study from 12/07/2016, there may not be a significant change Dr Ivon Whiteside MD [facility] (Electronically Signed) Final Date: 06 June 2020 15:01 S
== END 2020-06-06 11:02 | disposition home or self-care (01) ==
LOC: RAD 11:02
PROVIDERS: PCP Family Medicine; Visit Provider Internal Medicine Cardiovascular Disease
DX: R07.89 Other chest pain (principal); I70.0 Atherosclerosis of aorta; I05.9 Rheumatic mitral valve disease, unspecified
CPT/HCPCS: 93306